=== PATIENT | male | born 2000 | race Caucasian/White ===

== ENCOUNTER 2024-06-07 14:42 | Emergency (ER) | payer OTHER, SELFPAY ==
[2024-06-07] VITALS (10 sets, daily range): BP systolic 107–132; BP diastolic 70–98; PULSE 106–120; RESP 20–22; TEMP 36.8–36.9; O2SAT 98–100; BMI 19.2
--- NOTE | 2024-06-07 14:46 | ED_ITS ---
Discharge Plan Disposition Patient Disposition: Xfer Short-Term Hosp Chief Complaint: Weakness Prescriptions Prescriptions: No Action atomoxetine [Strattera] 40 mg capsule 40 mg PO DAILY Qty: 30 0RF Referrals Follow up/Referrals: Sukhwinder Mendez MD [Primary Care Provider] - See instructions Activity Restrictions/Add. Instructions Additional Instructions/Restrictions: To [facility] emergency department care of Dr. Nelson Clinical Impressions Clinical Impression: Acute hepatic failure, Hypokalemia, Hypocalcemia, Hyperammonemia, Thrombocytopenia, Leukocytosis, Acute hyponatremia Print Language Print Language: Estonian Discharge ED Provider: Cosmo Garcia General Adult HPI <ZEHRA Beasley - Last Filed: 06/07/24 17:34> General Chief complaint: Weakness Stated complaint: weakness, cant hold down food or liquids Time Seen by Provider: 06/07/24 14:44 History of Present Illness HPI narrative: Patient presents for evaluation of asthenia and anorexia. Patient reports that he has been feeling weak lethargic and has not been able to keep down food or liquids for at least a week. He does have a history of alcohol abuse but last drink a month and a half ago. His drink of choice was fireball. Patient has been to rehab before. He has not noticed that he is jaundiced but his family has. He does not know when that occurred but noticed that he has abdominal bloating and puffiness of his face . He denies abdominal pain chest pain shortness of breath fever chills hemoptysis hematochezia melena hematemesis hematuria. He denies IV drug use or illicit or street drug use. Related Data Previous Rx's ?Medication ?Instructions ?Recorded atomoxetine 40 mg capsule 40 mg PO DAILY #30 caps 12/30/20 (Strattera) Allergies Allergy/AdvReac Type Severity Reaction Status Date / Time No Known Allergies Allergy Verified 11/29/20 13:31 PFS <ZEHRA Beasley - Last Filed: 06/07/24 17:34> [facility] Disclaimer: The information contained in this section may have been updated after the patient was seen, as this information can be updated by other users. Social History (Updated 06/07/24 @ 17:34 by ZEHRA Beasley) Smoking Status: Current every day smoker alcohol intake: current alcohol intake frequency: a few times a week substance use type: denies use current occupational status: employed Travel in the last 8 weeks: None number of children: 0 Other Medical History Have you received the Pneumonia Vaccine: No <ZEHRA Beasley - Last Filed: 06/07/24 17:34> ROS Obtained: Yes Systems reviewed as appropriate & no additional complaints except as documented Physical Exam <ZEHRA Beasley - Last Filed: 06/07/24 17:34> General General appearance: alert and in no apparent distress Respiratory Respiratory exam: Present normal lung sounds bilaterally Cardiovascular Cardiovascular exam: Present tachycardia Neurological Exam Neurological exam: Present alert, oriented X3 and CN II-XII intact Medical Decision Making <ZEHRA Beasley - Last Filed: 06/07/24 17:34> Medical Records Medical records reviewed: Yes I reviewed the patient's medical records. Screening: Per USPSTF and CDC recommendations, given the prevalence of disease in our region, it is our hospital?s policy to screen for HIV and viral Hepatitis for all patients aged 18 and over and those with ongoing risk factors. Vidal Inquiry Pt receiving controlled substance: No Vital Signs: 06/07/24 14:44 06/07/24 15:00 06/07/24 15:30 Temperature 98.2 F Temperature Source Oral Pulse Rate 119 H 111 H Pulse Rate [Right Radial] 120 H Respiratory Rate 20 Blood Pressure 107/72 L 124/75 Blood Pressure [Right Arm] 110/70 Blood Pressure Mean 81 88 Blood Pressure Mean [Right Arm] 83 02 Sat by Pulse Oximetry 100 100 100 Oxygen Delivery Method Room Air Room Air Room Air 06/07/24 16:00 Temperature Temperature Source Pulse Rate 106 H Pulse Rate [Right Radial] Respiratory Rate Blood Pressure 123/76 Blood Pressure [Right Arm] Blood Pressure Mean 85 Blood Pressure Mean [Right Arm] 02 Sat by Pulse Oximetry 100 Oxygen Delivery Method Room Air Lab Data Lab results reviewed: Yes I reviewed the patient's lab results. Lab Results 06/07/24 15:02: Direct Bilirubin 2.0 H 06/07/24 15:03: WBC 19.7 H, RBC 2.32 L, Hgb 9.0 L, Hct 25.3 L, MCV 108.9 H, MCH 38.6 H, MCHC 35.5 H, RDW 17.5, Plt Count 77 L, MPV 8.4, Neut % (Auto) 85.0 H, Lymph % (Auto) 11.0, Fannin % (Auto) 3.2, Eos % (Auto) 0.3, Baso % (Auto) 0.4, N eut # (Auto) 16.7 H, Lymph # (Auto) 2.2, Fannin # (Auto) 0.6, Eos # (Auto) 0.1, Baso # (Auto) 0.1, Total Counted 100, Neutrophils % (Manual) 81 H, Lymphocytes % (Manual) 15, Monocytes % (Manual) 4, Platelet Estimate Normal, RBC Morphology Not Reportable, Poikilocytosis 1+, Anisocytosis 1+, Microcytosis 1+, Macrocytosis 1+, Target Cells 1+, PT 15.3 H, INR 1.41 H, APTT 27.3, Sodium 116 L , Potassium 2.0 L*, Chloride 65 L, Carbon Dioxide 39 H, Anion Gap 14.0, BUN 23 H , Creatinine 0.80, Estimated Creat Clear 118, Estimated GFR 118, Est GFR ( Amer) 143, Glucose 120 H, Lactate 8.1 H, Calcium 7.0 L, Magnesium 1.7, Total Bilirubin 5.3 H, AST 164 H, ALT 70, Alkaline Phosphatase 162 H, Ammonia 67 H, Lactate Dehydrogenase 175 L, C-Reactive Protein 60.2 H, Total Protein 5.8 L, Albumin 2.9 L, Globulin 2.9, Albumin/Globulin Ratio 1.0 L, Lipase 131, P rocalcitonin 3.43 H, Acetaminophen < 10 L, Monoscreen Negative, HIV 1&2 Antibody Rapid Nonreactive, Direct Antiglob Test Negative 06/07/24 15:48: Fibrinogen 278 06/07/24 15:03 06/07/24 15:03 Orders (Tests/Meds): ED MEDICATIONS Generic Name Dose Route Start Last Admin Trade Name Freq PRN Reason Stop Dose Admin Potassium Chloride/Water 100 mls @ 50 mls/hr 06/07/24 16:09 06/07/24 16:16 Potassium Chloride 20meq/100ml Ivpb IV 06/07/24 22:08 50 mls/hr Q2H MARYURI Administration Calcium Gluconate/Sodium Chloride 2 gm in 100 mls @ 50 mls/hr 06/07/24 16:13 06/07/24 16:19 Calcium Gluconate 2,000mg/100ml Nacl Premix IV 06/07/24 18:12 50 mls/hr ONCE ONE Administration Vancomycin/PEG/NADA/Lysine/Water 1.5 gm in 300 mls @ 150 mls/hr 06/07/24 16:30 06/07/24 17:38 Vancomycin 1.5gm/300ml (Peg) Premix IV 06/07/24 18:29 150 mls/hr ONCE ONE Administration Miscellaneous 1 each 06/07/24 16:15 06/07/24 16:59 Vancomycin Consult Request NOTAPPLIC 07/07/24 16:14 1 each CONSULT PHARMACY MARYURI Administration Discontinued Medications Generic Name Dose Route Start Last Admin Trade Name Freq PRN Reason Stop Dose Admin Lactated Ringer's 1,000 mls @ 999 mls/hr 06/07/24 14:54 06/07/24 15:06 Lactated Ringer's 1000 Ml Bag IV 06/07/24 15:54 999 mls/hr .Q1H1M ONE Administration Piperacillin Sod/Tazobactam 50 mls @ 100 mls/hr 06/07/24 16:15 06/07/24 16:42 Sod 3.375 gm/ Sodium Chloride IV 06/17/24 16:14 Not Given Q6H MARYURI Albumin Human 25 gm in 100 mls @ 100 mls/hr 06/07/24 16:14 06/07/24 17:03 Albumin 25% (12.5gm) Soln 50ml Bag IV 06/07/24 17:13 100 mls/hr ONCE ONE Administration Piperacillin Sod/Tazobactam 50 mls @ 100 mls/hr 06/07/24 16:40 06/07/24 16:42 Sod 3.375 gm/ Sodium Chloride IV 06/07/24 17:09 100 mls/hr ONCE ONE Administration Iopamidol 75 ml 06/07/24 15:09 06/07/24 15:09 Iopamidol-370 (76%);100ml Bottle IV 06/07/24 15:10 75 ml ONCE ONE Administration Lactulose 20 gm 06/07/24 16:14 06/07/24 16:21 Lactulose 20gm/30ml Udc PO 06/07/24 16:15 20 gm ONCE ONE Administration Potassium Chloride 60 meq 06/07/24 16:09 06/07/24 16:16 Potassium Chloride 20meq Tab PO 06/07/24 16:10 60 meq ONCE ONE Administration Sodium Chloride 10 ml 06/07/24 15:09 06/07/24 15:09 Sodium Chloride 0.9% 10ml Syr (Rad Only) IV 06/07/24 15:10 10 ml ONCE ONE Administration ORDERS Category Date Time Status Direct Jerilyn Stat BBK 06/07/24 15:[address] abdomen pelvis w con Stat Cat Scan 06/07/24 14:54 Completed POCUS Point of Care (ER Only) Stat Exams 06/07/24 14:54 Ordered Acetaminophen Stat Lab 06/07/24 15:03 Completed Ammonia Stat Lab 06/07/24 15:03 Completed Bilirubin,Direct Stat Lab 06/07/24 15:02 Completed CBC w/Auto Diff [Complete Blood Count Auto Diff] Stat Lab 06/07/24 15:03 Completed CMP [Comprehensive Metabolic Panel] Stat Lab 06/07/24 15:03 Completed CRP [C-Reactive Protein] Stat Lab 06/07/24 15:03 Completed Fibrinogen Stat Lab 06/07/24 15:48 Completed HIV (1&2) Antibody Rapid Stat Lab 06/07/24 15:03 Completed Hep C Ab with Reflex to RNA Stat Lab 06/07/24 15:03 Received Hepatitis Panel Routine Lab 06/07/24 15:03 Received INR [Prothrombin Time INR] Stat Lab 06/07/24 15:03 Completed LDH [Lactate Dehydrogenase] Stat Lab 06/07/24 15:03 Completed Lactic Acid Stat Lab 06/07/24 15:03 Completed Lipase Stat Lab 06/07/24 15:03 Completed Magnesium Stat Lab 06/07/24 15:03 Completed Monoscreen (Rapid) Stat Lab 06/07/24 15:03 Completed PTT [Activated Partial Thrombo Time] Stat Lab 06/07/24 15:03 Completed Procalcitonin Stat Lab 06/07/24 15:03 Completed UA [Urinalysis and Microscopic] Stat Lab 06/07/24 14:56 Ordered UDS [Drug Screen,Urine] Stat Lab 06/07/24 14:55 Ordered Blood Culture Stat Micro 06/07/24 16:38 Received Medical Decision Narrative: In summary patient is a 24-year-old male who presents to the emergency department for evaluation of asthenia and painless jaundice. Patient is normotensive tachycardic upon arrival, afebrile. Physical exam is remarkable for visibly jaundiced 24-year-old male who appears to be well-nourished well- developed. Patient has a distended but soft abdomen with no rebound no guarding or rigidity. Bowel sounds normal active. Breath sounds are clear. Patient has sinus tachycardia on the bedside monitor.. Differential diagnosis includes acute liver failure versus hepatitis versus intrinsic liver disease versus obstructive biliary pathology etc. Initial workup will be conducted with hematologic labs urinalysis CT scan abdomen pelvis twelve-lead EKG. Initial interventions include crystalloid bolus for now. Initial workup reviewed by me and shows multiple derangements including leukocytosis, anemia, coagulopathy, hyponatremia hypokalemia hypocalcemia hyperbilirubinemia hyperammonemia mild transaminitis. With the results I am able to calculate both a MELD sodium score and a discriminant function the former is 26 and the latter is 25.1. Upon repeat evaluation I have initiated aggressive electrolyte repletion as well as albumin. I had interactive discussion with hospital medicine here who felt the patient would benefit from malignant specialists and I do not disagree. To that end I had an interactive discussion with the [facility] about patient management and he has been accepted to the [facility] emergency department in care of Dr. Nelson <Matt Johnston MD - Last Filed: 06/07/24 18:09> Vital Signs: 06/07/24 14:44 06/07/24 15:00 06/07/24 15:30 Temperature 98.2 F Temperature Source Oral Pulse Rate 119 H 111 H Pulse Rate [Right Radial] 120 H Respiratory Rate 20 Blood Pressure 107/72 L 124/75 Blood Pressure [Right Arm] 110/70 Blood Pressure Mean 81 88 Blood Pressure Mean [Right Arm] 83 02 Sat by Pulse Oximetry 100 100 100 Oxygen Delivery Method Room Air Room Air Room Air 06/07/24 16:00 Temperature Temperature Source Pulse Rate 106 H Pulse Rate [Right Radial] Respiratory Rate Blood Pressure 123/76 Blood Pressure [Right Arm] Blood Pressure Mean 85 Blood Pressure Mean [Right Arm] 02 Sat by Pulse Oximetry 100 Oxygen Delivery Method Room Air Lab Data Lab Results 06/07/24 15:02: Direct Bilirubin 2.0 H 06/07/24 15:03: WBC 19.7 H, RBC 2.32 L, Hgb 9.0 L, Hct 25.3 L, MCV 108.9 H, MCH 38.6 H, MCHC 35.5 H, RDW 17.5, Plt Count 77 L, MPV 8.4, Neut % (Auto) 85.0 H, Lymph % (Auto) 11.0, Fannin % (Auto) 3.2, Eos % (Auto) 0.3, Baso % (Auto) 0.4, N eut # (Auto) 16.7 H, Lymph # (Auto) 2.2, Fannin # (Auto) 0.6, Eos # (Auto) 0.1, Baso # (Auto) 0.1, Total Counted 100, Neutrophils % (Manual) 81 H, Lymphocytes % (Manual) 15, Monocytes % (Manual) 4, Platelet Estimate Normal, RBC Morphology Not Reportable, Poikilocytosis 1+, Anisocytosis 1+, Microcytosis 1+, Macrocytosis 1+, Target Cells 1+, PT 15.3 H, INR 1.41 H, APTT 27.3, Sodium 116 L , Potassium 2.0 L*, Chloride 65 L, Carbon Dioxide 39 H, Anion Gap 14.0, BUN 23 H , Creatinine 0.80, Estimated Creat Clear 118, Estimated GFR 118, Est GFR ( Amer) 143, Glucose 120 H, Lactate 8.1 H, Calcium 7.0 L, Magnesium 1.7, Total Bilirubin 5.3 H, AST 164 H, ALT 70, Alkaline Phosphatase 162 H, Ammonia 67 H, Lactate Dehydrogenase 175 L, C-Reactive Protein 60.2 H, Total Protein 5.8 L, Albumin 2.9 L, Globulin 2.9, Albumin/Globulin Ratio 1.0 L, Lipase 131, P rocalcitonin 3.43 H, Acetaminophen < 10 L, Monoscreen Negative, HIV 1&2 Antibody Rapid Nonreactive, Direct Antiglob Test Negative 06/07/24 15:48: Fibrinogen 278 Orders (Tests/Meds): ED MEDICATIONS Generic Name Dose Route Start Last Admin Trade Name Freq PRN Reason Stop Dose Admin Potassium Chloride/Water 100 mls @ 50 mls/hr 06/07/24 16:09 06/07/24 16:16 Potassium Chloride 20meq/100ml Ivpb IV 06/07/24 22:08 50 mls/hr Q2H MARYURI Administration Calcium Gluconate/Sodium Chloride 2 gm in 100 mls @ 50 mls/hr 06/07/24 16:13 06/07/24 16:19 Calcium Gluconate 2,000mg/100ml Nacl Premix IV 06/07/24 18:12 50 mls/hr ONCE ONE Administration Vancomycin/PEG/NADA/Lysine/Water 1.5 gm in 300 mls @ 150 mls/hr 06/07/24 16:30 06/07/24 17:38 Vancomycin 1.5gm/300ml (Peg) Premix IV 06/07/24 18:29 150 mls/hr ONCE ONE Administration Miscellaneous 1 each 06/07/24 16:15 06/07/24 16:59 Vancomycin Consult Request NOTAPPLIC 07/07/24 16:14 1 each CONSULT PHARMACY MARYURI Administration Discontinued Medications Generic Name Dose Route Start Last Admin Trade Name Freq PRN Reason Stop Dose Admin Lactated Ringer's 1,000 mls @ 999 mls/hr 06/07/24 14:54 06/07/24 15:06 Lactated Ringer's 1000 Ml Bag IV 06/07/24 15:54 999 mls/hr .Q1H1M ONE Administration Piperacillin Sod/Tazobactam 50 mls @ 100 mls/hr 06/07/24 16:15 06/07/24 16:42 Sod 3.375 gm/ Sodium Chloride IV 06/17/24 16:14 Not Given Q6H [facility] Albumin Human 25 gm in 100 mls @ 100 mls/hr 06/07/24 16:14 06/07/24 17:03 Albumin 25% (12.5gm) Soln 50ml Bag IV 06/07/24 17:13 100 mls/hr ONCE ONE Administration Piperacillin Sod/Tazobactam 50 mls @ 100 mls/hr 06/07/24 16:40 06/07/24 16:42 Sod 3.375 gm/ Sodium Chloride IV 06/07/24 17:09 100 mls/hr ONCE ONE Administration Iopamidol 75 ml 06/07/24 15:09 06/07/24 15:09 Iopamidol-370 (76%);100ml Bottle IV 06/07/24 15:10 75 ml ONCE ONE Administration Lactulose 20 gm 06/07/24 16:14 06/07/24 16:21 Lactulose 20gm/30ml Udc PO 06/07/24 16:15 20 gm ONCE ONE Administration Potassium Chloride 60 meq 06/07/24 16:09 06/07/24 16:16 Potassium Chloride 20meq Tab PO 06/07/24 16:10 60 meq ONCE ONE Administration Sodium Chloride 10 ml 06/07/24 15:09 06/07/24 15:09 Sodium Chloride 0.9% 10ml Syr (Rad Only) IV 06/07/24 15:10 10 ml ONCE ONE Administration ORDERS Category Date Time Status Direct Jerilyn Stat BBK 06/07/24 15:[address] abdomen pelvis w con Stat Cat Scan 06/07/24 14:54 Completed POCUS Point of Care (ER Only) Stat Exams 06/07/24 14:54 Ordered Acetaminophen Stat Lab 06/07/24 15:03 Completed Ammonia Stat Lab 06/07/24 15:03 Completed Bilirubin,Direct Stat Lab 06/07/24 15:02 Completed CBC w/Auto Diff [Complete Blood Count Auto Diff] Stat Lab 06/07/24 15:03 Completed CMP [Comprehensive Metabolic Panel] Stat Lab 06/07/24 15:03 Completed CRP [C-Reactive Protein] Stat Lab 06/07/24 15:03 Completed Fibrinogen Stat Lab 06/07/24 15:48 Completed HIV (1&2) Antibody Rapid Stat Lab 06/07/24 15:03 Completed Hep C Ab with Reflex to RNA Stat Lab 06/07/24 15:03 Received Hepatitis Panel Routine Lab 06/07/24 15:03 Received INR [Prothrombin Time INR] Stat Lab 06/07/24 15:03 Completed LDH [Lactate Dehydrogenase] Stat Lab 06/07/24 15:03 Completed Lactic Acid Stat Lab 06/07/24 15:03 Completed Lipase Stat Lab 06/07/24 15:03 Completed Magnesium Stat Lab 06/07/24 15:03 Completed Monoscreen (Rapid) Stat Lab 06/07/24 15:03 Completed PTT [Activated Partial Thrombo Time] Stat Lab 06/07/24 15:03 Completed Procalcitonin Stat Lab 06/07/24 15:03 Completed UA [Urinalysis and Microscopic] Stat Lab 06/07/24 14:56 Ordered UDS [Drug Screen,Urine] Stat Lab 06/07/24 14:55 Ordered Blood Culture Stat Micro 06/07/24 16:38 Received Medical Decision Narrative: In summary patient is a 24-year-old male who presents to the emergency department for evaluation of asthenia and painless jaundice. Patient is normotensive tachycardic upon arrival, afebrile. Physical exam is remarkable for visibly jaundiced 24-year-old male who appears to be well-nourished well- developed. Patient has a distended but soft abdomen with no rebound no guarding or rigidity. Bowel sounds normal active. Breath sounds are clear. Patient has sinus tachycardia on the bedside monitor.. Differential diagnosis includes acute liver failure versus hepatitis versus intrinsic liver disease versus obstructive biliary pathology etc. Initial workup will be conducted with hematologic labs urinalysis CT scan abdomen pelvis twelve-lead EKG. Initial interventions include crystalloid bolus for now. Initial workup reviewed by me and shows multiple derangements including leukocytosis, anemia, coagulopathy, hyponatremia hypokalemia hypocalcemia hyperbilirubinemia hyperammonemia mild transaminitis. With the results I am able to calculate both a MELD sodium score and a discriminant function the former is 26 and the latter is 25.1. Upon repeat evaluation I have initiated aggressive electrolyte repletion as well as albumin. I had interactive discussion with hospital medicine here who felt the patient would benefit from malignant specialists and I do not disagree. To that end I had an interactive discussion with the [facility] transfer center about patient management and he has been accepted to the [facility] emergency department in care of Dr. Omar Johnston: I independently examined and interviewed patient. I agree with above. Labs concerning for acute liver failure. Leukocytosis with neutrophilia, but new onset anemia and thrombocytopenia. Kidney function normal. Patient hyponatremic, hypokalemic, hypochloremic. Anion gap normal. Lactate elevated 8.1. LFTs with AST 164/ALT 70/alkaline phosphatase 162. Total bilirubin 5.3, direct bilirubin 2.0. LDH and direct Jerilyn tests are negative. Procalcitonin elevated at 3.5. Acetaminophen negative. CT of the abdomen and pelvis with concern perihepatic fluid, no obvious intra-abdominal abnormality. Bedside [id number] ultrasound with gallbladder sludge, no stones, normal caliber of common bile duct. Hospitalist was contacted and case was discussed, given nature of acute hepatic failure, recommended transfer to Center with hepatology. I feel this is appropriate. Matt Johnston MD Procedures <Matt Johnston MD - Last Filed: 06/07/24 18:09> Limited Ultrasound Indication:: Limited RUQ ultrasound Indication: Acute liver failure, painless jaundice, abnormal CT Identified structures: -Gallbladder -Gallbladder wall -Common bile duct -Liver Findings: Sonographic Mcginnis sign: Absent Gallstones: Absent Sludge: Present Pericholecystic fluid: Absent Maximal GB wall thickness (mm) (normal is </= 3mm): 3.1 mm Common bile duct width (mm) (normal is </= 6mm): Normal Gallbladder width (cm) (normal is < 4cm): Normal Gallbladder length (cm) (normal is < 10cm): Normal Impression: Borderline upper limit of normal gallbladder wall at 3.1 mm with no secondary findings concerning for cholecystitis. Sludge in the gallbladder without focal stones. Images were saved to permanent archive The study was technically adequate CPT 60141-20 This study was performed by me, and I personally interpreted all images/videos. Based on my clinical judgement, these images were adequate and did not necessitate further imaging. Critical Care <ZEHRA Beasley - Last Filed: 06/07/24 17:34> Critical Care Time Critical Care Time: Yes Attestation: On 06/07/24, the high probability of a clinically significant, sudden or life threatening deterioration of the following system: Cardiopulmonary, neurologic; required my full and direct attention, intervention and personal management. The time I documented below is in addition to time spent performing reported procedures but includes the following listed in this critical care notation. Total Time Total Critical Care Time: 45
--- NOTE | 2024-06-07 14:54 | CT_ITS ---
PROCEDURE INFORMATION: Exam: CT Abdomen And Pelvis With Contrast Exam date and time: 06/07/2024 3:11 PM Age: 24 years old Clinical indication: Other: Painless jaundice TECHNIQUE: Imaging protocol: Computed tomography of the abdomen and pelvis with contrast. Radiation optimization: All CT scans at this facility use at least one of these dose optimization techniques: automated exposure control; mA and/or kV adjustment per patient size (includes targeted exams where dose is matched to clinical indication); or iterative reconstruction. Contrast material: ISOVUE; Contrast volume: 75 ml; Contrast route: IV; COMPARISON: No relevant prior studies available. FINDINGS: Diaphragm: Small hiatal hernia. Liver: Normal. No mass. Gallbladder and biliary ducts: Gallstones in the gallbladder. . Mild pericholecystic fluid adjacent to the fundus. No dilatation of the common duct Pancreas: Normal. No ductal dilation. Spleen: Borderline splenomegaly 13 cm Adrenal glands: Normal. No mass. Kidneys and ureters: Normal. No hydronephrosis. Stomach and bowel: Low-attenuation bowel wall thickening and enhancing mucosa is seen throughout the colon consistent with colitis. Differential diagnosis includes infectious and inflammatory etiologies.. Appendix: Normal appendix. Intraperitoneal space: Unremarkable. No free air. No significant fluid collection. Vasculature: Unremarkable. No abdominal aortic aneurysm. Lymph nodes: Enlarged lymph node adjacent to the distal esophagus 14.5 x 10.5 mm (series 3, image 6. Urinary bladder: Unremarkable as visualized. Reproductive: Unremarkable as visualized. Bones/joints: Unremarkable. No acute fracture. Soft tissues: Unremarkable. IMPRESSION: 1. Low-attenuation bowel wall thickening and enhancing mucosa is seen throughout the colon consistent with colitis. Differential diagnosis includes infectious and inflammatory etiologies.. 2. Enlarged lymph node adjacent to the distal esophagus 14.5 x 10.5 mm (series 3, image 6. 3. Gallstones in the gallbladder. . Mild pericholecystic fluid adjacent to the fundus. No dilatation of the common duct. Recommend gallbladder ultrasound if clinically indicated
--- NOTE | 2024-06-07 15:03 | PC.NURSE ---
labs collected and sent to lab
[2024-06-07] MEDS: LACTATED RINGERS 1000ML 1,000 ML 999 ML IV (15:06)
--- NOTE | 2024-06-07 15:06 | PC.NURSE ---
PT TO CT
[2024-06-07] MEDS: IOPAMIDOL-370 (76%);100ML BOTTLE 75 ML IV (15:09)
[2024-06-07] MEDS: SODIUM CHLORIDE 0.9% 10ML SYR (RAD ONLY) 10 ML IV (15:09)
--- NOTE | 2024-06-07 15:17 | ECG_ITS ---
APPROVED REPORT Exam: Resting ECG HR:113 bpm ECG Measurements Heart Rate 113 AXES NH 167 P 62 QRSd 85 QRS 65 QT 367 T 63 QTc 434 Conclusion Sinus tachycardia. Nonspecific T wave changes. Electronically signed by : SHADI PINEDA, 06/07/2024 20:01:37
[2024-06-07 15:29] LABS: Lactate Dehydrogenase 175 U/L (313-618)
[2024-06-07 15:30] LABS: Alanine Aminotransferase 70 U/L (12-78); Albumin Level 2.9 g/dl (3.5-5.0); Alkaline Phosphatase 162 U/L (38-126); Aspartate Amino Transferase 164 U/L (17-59); Basophils # 0.1 K/mm3 (0-0.2); Basophils % 0.4 % (0.1-2.0); Bilirubin,Total 5.3 mg/dl (0.2-1.3); Blood Urea Nitrogen 23 mg/dl (9-20); Carbon Dioxide 39 mmol/L (22.0-30.0); Creatinine Clearance Estimated 118 mL/min (50-200); Eosinophils # 0.1 K/mm3 (0.0-0.4); Eosinophils % 0.3 % (0.1-12.0); Estimated Glomerular Filt Rate 118 ml/min (>60); GFR (African American) 143 ML/MIN (>60); Globulin 2.9 g/dL (1.3-3.2); Glucose 120 mg/dl (74-100); Hematocrit 25.3 % (42.0-52.0); Lipase 131 U/L (23-300); Lymphocytes # 2.2 K/mm3 (0.7-4.5); Magnesium 1.7 mg/dl (1.6-2.3); Mean Corpuscular HGB Conc 35.5 g/dL (31.8-35.4); Mean Corpuscular Hemoglobin 38.6 pg (27.0-31.2); Mean Corpuscular Volume 108.9 fl (80-94); Mean Platelet Volume 8.4 fl (7.4-10.4); Monocytes # 0.6 K/mm3 (0.1-1.0); Monocytes % 3.2 % (1.7-9.3); Neutrophils # 16.7 K/mm3 (1.8-7.8); Platelet Count 77 K/mm3 (142-424); Red Blood Count 2.32 M/mm3 (4.60-6.20); Red Cell Distribution Width 17.5 % (11.5-17.5); Sodium 116 mmol/L (136-145); Total Protein,Serum 5.8 g/dl (6.3-8.2); White Blood Count 19.7 K/mm3 (4.8-10.8)
[2024-06-07 15:33] LABS: Acetaminophen < 10 ug/ml (10-30)
[2024-06-07 15:34] LABS: C-Reactive Protein 60.2 mg/L (0-4); MANUAL DIFFERENTIAL MANUAL DIFFERENTIAL (MANUAL DIFF)
[2024-06-07 15:41] LABS: Ammonia 67 umol/L (9-30)
[2024-06-07 15:57] LABS: Monoscreen (Rapid) Negative (Negative)
[2024-06-07 16:08] LABS: Chloride 65 mmol/L (98-107); Lactic Acid 8.1 mmol/L (0.7-2.1)
--- NOTE | 2024-06-07 16:08 | PC.NURSE ---
SARAH JEAN made aware of critical labs of Potassium-2.0,Chloride-65, and Lactic-8.1
[2024-06-07] MEDS: KCl 20mEq/100ml 100 ML 50 MEQ IV ×3 (16:16→20:46)
[2024-06-07] MEDS: POTASSIUM CHLORIDE 20MEQ TAB 60 MEQ PO (16:16)
[2024-06-07] MEDS: CALCIUM GLUC IN NACL, ISO-OSM 2 GM/100 ML BAG IV (16:19)
[2024-06-07] MEDS: LACTULOSE 20GM/30ML UDC 20 GM PO (16:21)
[2024-06-07 16:23] LABS: INR 1.41 (0.9-1.1); Prothrombin Time 15.3 seconds (10.1-12.5)
[2024-06-07 16:28] LABS: Activated Partial Thrombo Time 27.3 seconds (22.8-30.6)
[2024-06-07 16:32] LABS: Lymphocytes % 15 % (10-50); Monocytes % 4 % (2-9); Neutrophils % 81 % (42-76); Total Cells Counted 100
[2024-06-07 16:33] LABS: Anisocytosis 1+; Macrocytosis 1+; Microcytosis 1+; Platelet Estimate Normal; Poikilocytosis 1+; Target Cells 1+
[2024-06-07] MEDS: PIPERACILLIN/TAZO 3.375 GM in 0.9 % SODIUM CHLORIDE 50 ML IV (16:42)
[2024-06-07 16:46] LABS: Procalcitonin 3.43 ng/mL (0.0-2.0)
[2024-06-07] MEDS: VANCOMYCIN CONSULT REQUEST 1 EACH NOTAPPLIC (16:59)
[2024-06-07] MEDS: ALBUMIN HUMAN 25 GM/100 ML BAG IV (17:03)
--- NOTE | 2024-06-07 17:08 | PC.NURSE ---
Called [facility] to transfer patient per Don. [facility] stated that they would give us a call back
[2024-06-07 17:26] LABS: Fibrinogen 278 mg/dL (229.9-363.5)
[2024-06-07 17:37] LABS: HIV (1&2) Antibody Rapid NONREACTIVE (NONREACTIVE)
[2024-06-07] MEDS: VANCOMYCIN/WATER FOR INJ (PEG) 1.5 GM/300 ML PIGGYBACK IV (17:38)
--- NOTE | 2024-06-07 18:41 | PC.NURSE ---
rounded on pt. no needs at this time. awaiting transfer.
[2024-06-07 19:08] LABS: Reflex Lactic Add Lactic Reflex
[2024-06-07 20:55] LABS: Microscopic, Urine URINE MICROSCOPIC (MICROSCOPIC)
[2024-06-07 21:02] LABS: Blood, Urine Negative (Negative); Glucose,Urine (UA) Negative (Negative); Ketones,Urine TRACE (Negative); Leukocyte Esterase,Urine Negative (Negative); Nitrate,Urine POSITIVE (Negative); Protein,Urine Negative (Negative)
[2024-06-07 21:09] LABS: Bilirubin,Urine 2+ (Negative); Color,Urine Amber (Yellow)
[2024-06-07 21:10] LABS: Appearance,Urine Cloudy (Clear)
[2024-06-07 21:12] LABS: Amphetamine/Metha Screen,Urine Negative ng/ml (<1000)
[2024-06-07 21:13] LABS: Barbiturates Screen,Urine Negative ng/ml (<200); Benzodiazepines Screen,Urine Negative ng/ml (<200)
[2024-06-07 21:14] LABS: Cannabinoid Screen,Urine Negative ng/ml (<50)
[2024-06-07 21:15] LABS: Cocaine Screen,Urine Negative ng/ml (<300); Methadone Screen,Urine Negative ng/ml (<300)
[2024-06-07 21:16] LABS: Opiate Screen,Urine Negative ng/ml (<300); Phencyclidine Screen,Urine Negative ng/ml (<25)
[2024-06-07 21:27] LABS: Bacteria,Urine 1+ /lpf; Squamous Epithelial Cell,Urine Occasional #/hpf (0-5)
--- NOTE | 2024-06-08 03:16 | PC.NURSE ---
pharmacy contacted the ED in regards to the dosing for vancomycin and Zosyn for this patient.
[2024-06-09 08:59] LABS: HBsAg Screen Negative (Negative); HCV Ab Non Reactive (Non Reactive); Hep A Ab, IGM Negative (Negative); Hep B Core Ab, IgM Negative (Negative)
== END 2024-06-07 21:20 | disposition short-term general hospital (02) ==
PROVIDERS: Emergency Medicine; Physician Assistant; Emergency Provider Student in an Organized Health Care Education/Training Program; PCP Family Medicine
DX: E87.1 Hypo-osmolality and hyponatremia (principal); D72.89 Other specified disorders of white blood cells; D69.6 Thrombocytopenia, unspecified; E72.20 Disorder of urea cycle metabolism, unspecified; E83.51 Hypocalcemia; E87.6 Hypokalemia; K72.00 Acute and subacute hepatic failure without coma; R53.1 Weakness; R14.0 Abdominal distension (gaseous); R63.8 Other symptoms and signs concerning food and fluid intake
CPT/HCPCS: 74177; 80053; 80074; 80307; 80329; 81001; 82140; 82248; 83605; 83615; 83690; 83735; 84145; 85007; 85025; 85027; 85384; 85610; 85730; 86140; 86318; 86803; 86880; 87040; 87389; 93005; 96361; 96365; 96374; 99291; G0480; J2543; J7120; P9047; Q9967

== ENCOUNTER 2024-06-15 00:13 | Emergency (ER) | payer OTHER, SELFPAY ==
[2024-06-15] VITALS (10 sets, daily range): BP systolic 92–137; BP diastolic 57–83; PULSE 70–115; RESP 18–20; TEMP 36.4–36.7; O2SAT 94–100; BMI 21.8
--- NOTE | 2024-06-15 00:17 | HMH.EDGENADL ---
Discharge Plan Disposition Patient Disposition: Home, Self-Care Prescriptions Prescriptions: No Action atomoxetine [Strattera] 40 mg capsule 40 mg PO DAILY Qty: 30 0RF benzonatate 200 mg capsule 200 mg PO TIDP PRN (Reason: Cough) sucralfate 100 mg/mL suspension 1,000 mg PO Q6H pantoprazole 20 mg tablet,delayed release (DR/EC) 20 mg PO DAILY calcium carbonate [Calcium Antacid] 200 mg calcium (500 mg) tablet,chewable 200 mg PO Q6HP PRN (Reason: Indigestion) nicotine 21 mg/24 hr patch 24 hour 21 mg transdermal DAILY lidocaine HCl [Lidocaine Viscous] 2 % solution 1 applic PO DAILY folic acid 1 mg tablet 1 mg PO DAILY potassium chloride [Klor-Con M10] 10 mEq tablet,ER particles/crystals 10 meq PO DAILY thiamine mononitrate (vit B1) [Vitamin B-1 (mononitrate)] 100 mg tablet 100 mg PO DAILY Referrals Follow up/Referrals: Sukhwinder Mendez MD [Primary Care Provider] - See instructions Activity Restrictions/Add. Instructions Additional Instructions/Restrictions: Please continue to follow-up with previously scheduled appointments. Please return to the emergency department if you develop any new or worsening symptoms or become concerned for your health. Clinical Impressions Clinical Impression: Ascites due to alcoholic hepatitis Instructions Patient Instructions: DI for Acute Abdominal Pain Print Language Print Language: Czech Discharge ED Provider: Dutch Byrd Adult HPI General Chief complaint: Abdominal Pain Stated complaint: abd pain Time Seen by Provider: 06/15/24 00:16 History of Present Illness HPI narrative: 24-year-old male with history of alcoholism with recent admission to [facility] for acute liver failure presents for abdominal pain. Per chart review and history from family, patient was drinking heavily for a long time. He stopped eating due to a break-up and then developed these issues more acutely. He was seen in our ER and was noted to have a meld of 26 and have a variety of severe laboratory abnormalities. He was sent to for further evaluation. He was kept there until when he was discharged after they had stabilized his electrolytes and his liver enzymes had been downtrending. He reports that he has not begun drinking again. He reports he has been eating a normal diet. He is here tonight because his abdomen is becoming more distended and he is having more pain. At he did not have a paracentesis because he did not have any ascites. Patient reports normal urination. He reports he is having multiple daily stools that are pale in color, not diarrheal. Related Data Home Medications ?Medication ?Instructions ?Recorded ?Confirmed benzonatate 200 mg capsule 200 mg PO TIDP PRN Cough 06/15/24 06/15/24 calcium carbonate (Calcium Antacid) 200 mg PO Q6HP PRN Indigestion 06/15/24 06/15/24 folic acid 1 mg tablet 1 mg PO DAILY 06/15/24 06/15/24 lidocaine HCl 2 % mucosal solution 1 applic PO DAILY 06/15/24 06/15/24 (Lidocaine Viscous) nicotine 21 mg/24 hr daily 21 mg transdermal DAILY 06/15/24 06/15/24 transdermal patch pantoprazole 20 mg tablet,delayed 20 mg PO DAILY 06/15/24 06/15/24 release potassium chloride 10 mEq 10 meq PO DAILY 06/15/24 06/15/24 tablet,extended release(part/cryst) (Klor-Con M) sucralfate 100 mg/mL oral 1,000 mg PO Q6H 06/15/24 06/15/24 suspension thiamine mononitrate (vit B1) 100 100 mg PO DAILY 06/15/24 06/15/24 mg tablet (Vitamin B-1 (mononitrate)) Previous Rx's ?Medication ?Instructions ?Recorded atomoxetine 40 mg capsule 40 mg PO DAILY #30 caps 12/30/20 (Strattera) Allergies Allergy/AdvReac Type Severity Reaction Status Date / Time No Known Allergies Allergy Verified 11/29/20 13:31 [facility] Disclaimer: The information contained in this section may have been updated after the patient was seen, as this information can be updated by other users. Social History (Updated 06/07/24 @ 17:34 by ZEHRA Beasley) Smoking Status: Current every day smoker alcohol intake: current alcohol intake frequency: a few times a week substance use type: denies use current occupational status: employed Travel in the last 8 weeks: None number of children: 0 Other Medical History Have you received the Pneumonia Vaccine: No ROS Obtained: Yes All systems reviewed & no additional complaints except as documented Physical Exam General General appearance: alert Comment: Pale Head Head exam: atraumatic and normocephalic Eye Eye exam: Present normal appearance, PERRL and EOMI ENT ENT exam: Present normal oropharynx and normal external ear exam Neck Neck exam: Present normal inspection and full ROM Chest Chest inspection: Present normal inspection and symmetric chest wall rise; Absent tenderness Respiratory Respiratory exam: Present normal lung sounds bilaterally; Absent respiratory distress Cardiovascular Cardiovascular exam: Present regular rate and normal rhythm Abdominal Exam Abdominal exam: Present soft, distention and tenderness (generalized); Absent guarding Extremities Exam Extremities exam: Present normal inspection and edema (bilat LE); Absent joint swelling Back Exam Back exam: Present normal inspection; Absent tenderness Neurological Exam Neurological exam: Present alert and oriented X3; Absent motor sensory deficit Psychiatric Psychiatric exam: Present anxious Skin Skin exam: Present warm, dry and pallor Lymphatic Lymphatic Findings: no adenopathy Medical Decision Making Medical Records Medical records reviewed: Yes I reviewed the patient's medical records. Screening: Per USPSTF and CDC recommendations, given the prevalence of disease in our region, it is our hospital?s policy to screen for HIV and viral Hepatitis for all patients aged 18 and over and those with ongoing risk factors. Vidal Inquiry Pt receiving controlled substance: No Vidal was queried for this patient: No Vital Signs: 06/15/24 00:14 06/15/24 00:42 06/15/24 01:00 Temperature 97.6 F Temperature Source Oral Pulse Rate 111 H 106 H Pulse Rate [Right] 115 H Respiratory Rate 19 Blood Pressure 111/74 92/57 L Blood Pressure [Left Arm] 124/83 Blood Pressure Mean Blood Pressure Mean [Left Arm] 96 Blood Pressure Source [Left Arm] Automatic Cuff 02 Sat by Pulse Oximetry 99 100 98 Oxygen Delivery Method Room Air 06/15/24 01:58 06/15/24 02:17 06/15/24 03:32 Temperature Temperature Source Pulse Rate 103 H 98 H 70 Pulse Rate [Right] Respiratory Rate 18 Blood Pressure 110/62 119/79 120/69 Blood Pressure [Left Arm] Blood Pressure Mean 78 Blood Pressure Mean [Left Arm] Blood Pressure Source [Left Arm] 02 Sat by Pulse Oximetry 97 94 L 98 Oxygen Delivery Method 06/15/24 04:00 06/15/24 04:30 Temperature Temperature Source Pulse Rate 95 H 92 H Pulse Rate [Right] Respiratory Rate Blood Pressure 116/73 113/66 Blood Pressure [Left Arm] Blood Pressure Mean Blood Pressure Mean [Left Arm] Blood Pressure Source [Left Arm] 02 Sat by Pulse Oximetry 100 99 Oxygen Delivery Method Lab Data Lab results reviewed: Yes I reviewed the patient's lab results. Lab Results 06/15/24 00:30: WBC 19.2 H, RBC 2.56 L, Hgb 9.0 L, Hct 27.4 L, MCV 107.0 H, MCH 35.0 H, MCHC 32.7, RDW 19.6 H, Plt Count 518 H, MPV 8.6, Neut % (Auto) 78.9, Lymph % (Auto) 15.4, [place] % (Auto) 3.8, Eos % (Auto) 1.1, Baso % (Auto) 0.8, Neut # (Auto) 15.2 H, Lymph # (Auto) 3.0, [place] # (Auto) 0.7, Eos # (Auto) 0.2, Baso # (Auto) 0.2, Total Counted 100, Neutrophils % (Manual) 76, Lymphocytes % (Manual) 15, Atypical Lymphs % 1.0, Monocytes % (Manual) 6, Eosinophils % (Manual) 2, Platelet Estimate Slight increase, Anisocytosis 1+, Macrocytosis 1+, PT 11.9, INR 1.07, Sodium 133 L, Potassium 3.6, Chloride 98, Carbon Dioxide 31 H, Anion Gap 7.6, BUN 14, Creatinine 0.70, Estimated Creat Clear 153, Estimated GFR 137, Est GFR ( Amer) 166, Glucose 116 H, Calcium 7.9 L, Phosphorus 3.5, Magnesium 1.4 L, Total Bilirubin 1.1, AST 236 H, ALT 79 H, Alkaline Phosphatase 207 H, Total Protein 5.5 L, Albumin 2.6 L, Globulin 2.9, Albumin/Globulin Ratio 0.9 L, Lipase 99 06/15/24 03:00: Urine Color Josefa, Urine Appearance Slightly cloudy, Urine pH 5.5, Ur Specific Townsend 1.020, Urine Protein Trace, Urine Glucose (UA) Negative, Urine Ketones 1+, Urine Blood Negative, Urine Nitrate Positive, Urine Bilirubin 2+ A, Urine Urobilinogen 1.0, Ur Leukocyte Esterase Negative, Urine RBC None, Urine WBC 3-5, Ur Squamous Epith Cells Occasional, Urine Bacteria 1+, Urine Mucus 1+ 06/15/24 03:06: Fluid Source Peritoneal fluid, Fluid Volume 13, Fluid Appearance Cloudy, Fluid RBC (Auto) < 10, Fld Tot Nucleated Cell 62 06/15/24 00:30 06/15/24 00:30 Orders (Tests/Meds): ED MEDICATIONS Discontinued Medications Generic Name Dose Route Start Last Admin Trade Name Miley PRN Reason Stop Dose Admin Ceftriaxone Sodium 2 gm/ 100 mls @ 200 mls/hr 06/15/24 02:27 06/15/24 03:31 Sodium Chloride IV 06/15/24 02:56 200 mls/hr ONCE ONE Administration Iopamidol 75 ml 06/15/24 01:52 06/15/24 01:54 Iopamidol-370 (76%);100ml Bottle IV 06/15/24 01:53 75 ml ONCE ONE Administration Morphine Sulfate 4 mg 06/15/24 00:31 06/15/24 00:36 Morphine 4mg/Ml Syringe IV 06/15/24 00:32 4 mg ONCE ONE Administration Sodium Chloride 10 ml 06/15/24 01:52 06/15/24 01:53 Sodium Chloride 0.9% 10ml Syr (Rad Only) IV 06/15/24 01:53 10 ml ONCE ONE Administration ORDERS Category Date Time Status CT abdomen pelvis w con Stat Cat Scan 06/15/24 00:31 Completed Body Fluid: Cell Count w/ Diff Stat Lab 06/15/24 03:06 Results CBC w/Auto Diff [Complete Blood Count Auto Diff] Stat Lab 06/15/24 00:30 Completed CMP [Comprehensive Metabolic Panel] Stat Lab 06/15/24 00:30 Completed INR [Prothrombin Time INR] Stat Lab 06/15/24 00:30 Completed Lipase Stat Lab 06/15/24 00:30 Completed Magnesium Stat Lab 06/15/24 00:30 Completed Phosphorous Stat Lab 06/15/24 00:30 Completed UA [Urinalysis and Microscopic] Stat Lab 06/15/24 03:00 Completed Blood Culture Stat Micro 06/15/24 03:16 Received Body Fluid Cult & Gram Stain Stat Micro 06/15/24 03:30 Ordered Medical Decision Narrative: 24-year-old male with history of recent admission to for acute liver failure presents for worsening abdominal pain and distention. History was obtained via interactive discussion with patient, family, chart review. On arrival, patient is [afebrile, hemodynamically stable, satting appropriately, alert, oriented x4, GCS 15], moving all extremities spontaneously. Full physical exam performed and significant for pale appearing, abdomen tender and mildly distended, bilateral lower extremity edema Differential includes but is not limited to worsening liver failure, ascites, SBP, biliary pathology, electrolyte derangements. Workup initiated including CBC CMP mag Phos blood cultures urinalysis CT abdomen pelvis with IV contrast. On re-evaluation, patient [remains afebrile, HD stable.] Laboratory workup independently interpreted by me and significant for elevated AST ALT alk phos, mildly up trended from patient's discharge labs on at .. Bilirubin normalized. Mild hypokalemia and hypomagnesemia.. Imaging independently interpreted by me and significant for moderate ascites, gallbladder contracted with stones, bilateral small pleural effusions. See radiology read for full review of final results. Paracentesis was performed and thereafter patient was initiated on ceftriaxone 2 g for BP prophylaxis. Culture Gram stain and cell count sent to lab. Patient had total of 1.2 L of fluid removed. The cell count returned with less than 250 nucleated cells, no evidence of SBP. Given mildly worsened LFTs and new onset ascites, I called and spoke with the [facility] regarding next steps. Patient is hemodynamically stable, reports symptomatic improvement after SBP, and his labs overall are significantly better than when he was here previously. His MELD has gone from 26-13. He has scheduled follow-up within the next 3 and 4 days and has good access to his PCP in [place]. I offered the patient transfer to the [facility] for continued monitoring at this time, but after interactive discussion with patient and family they have elected to return home for now and follow-up with PCP for repeat labs or they will return if he develops any new or worsening symptoms. I had a extensive discussion with patient about the importance of continuing alcohol abstinence. Procedures Risk/Benefits of Procedure(s) Were Explained: Yes Critical Care Critical Care Time Critical Care Time: No
--- NOTE | 2024-06-15 00:31 | CT_ITS ---
PROCEDURE INFORMATION: Exam: CT Abdomen And Pelvis With Contrast Exam date and time: 06/15/2024 1:55 AM Age: 24 years old Clinical indication: Abdominal pain; Generalized; Additional info: Recent alcoholic hepatitis, worsening abd pain TECHNIQUE: Imaging protocol: Computed tomography of the abdomen and pelvis with contrast. Radiation optimization: All CT scans at this facility use at least one of these dose optimization techniques: automated exposure control; mA and/or kV adjustment per patient size (includes targeted exams where dose is matched to clinical indication); or iterative reconstruction. Contrast material: ISOVUE 370; Contrast volume: 75 ml; Contrast route: IV; COMPARISON: CT ABDOMEN PELVIS W CON 06/07/2024 3:11 PM FINDINGS: Pleural spaces: Small bilateral pleural effusions. Diaphragm: Small hiatal hernia. Liver: Mild hepatomegaly. No focal hepatic disease is noted but heterogeneous fatty replacement is seen. Gallbladder and biliary ducts: Multiple dependent gallstones. Gallbladder wall thickening with pericholecystic fluid. Pancreas: Normal. No ductal dilation. Spleen: Normal. No splenomegaly. Adrenal glands: Normal. No mass. Kidneys and ureters: Normal. No hydronephrosis. Stomach and bowel: Unremarkable. No obstruction. No mucosal thickening. Appendix: No evidence of appendicitis. Intraperitoneal space: Moderate ascites is seen throughout the abdomen and pelvis. Vasculature: Unremarkable. No abdominal aortic aneurysm. Lymph nodes: Unremarkable. No enlarged lymph nodes. Urinary bladder: Unremarkable as visualized. Reproductive: Unremarkable as visualized. Bones/joints: Unremarkable. No acute fracture. Soft tissues: Unremarkable. IMPRESSION: 1. Heterogeneous hepatic steatosis and mild hepatomegaly. 2. Moderate ascites. 3. Contracted gallbladder with stones and pericholecystic fluid, correlate with right upper quadrant ultrasound for further evaluation as clinically indicated. 4. Small bilateral pleural effusions.
[2024-06-15] MEDS: MORPHINE 4MG/ML SYRINGE 4 MG IV (00:36)
[2024-06-15 00:44] LABS: Basophils # 0.2 K/mm3 (0-0.2); Basophils % 0.8 % (0.1-2.0); Eosinophils # 0.2 K/mm3 (0.0-0.4); Eosinophils % 1.1 % (0.1-12.0); Hematocrit 27.4 % (42.0-52.0); Lymphocytes % 15.4 % (10-50); Mean Corpuscular HGB Conc 32.7 g/dL (31.8-35.4); Mean Platelet Volume 8.6 fl (7.4-10.4); Monocytes # 0.7 K/mm3 (0.1-1.0); Monocytes % 3.8 % (1.7-9.3); Neutrophils # 15.2 K/mm3 (1.8-7.8); Neutrophils % 78.9 % (37.0-80.0); Platelet Count 518 K/mm3 (142-424); Red Blood Count 2.56 M/mm3 (4.60-6.20); Red Cell Distribution Width 19.6 % (11.5-17.5); White Blood Count 19.2 K/mm3 (4.8-10.8)
[2024-06-15 00:46] LABS: MANUAL DIFFERENTIAL MANUAL DIFFERENTIAL (MANUAL DIFF)
[2024-06-15 00:50] LABS: INR 1.07 (0.9-1.1); Prothrombin Time 11.9 seconds (10.1-12.5)
[2024-06-15 00:53] LABS: Alanine Aminotransferase 79 U/L (12-78); Albumin Level 2.6 g/dl (3.5-5.0); Albumin/Globulin Ratio 0.9 (1.1-1.8); Alkaline Phosphatase 207 U/L (38-126); Anion Gap 7.6 mEq/L (5-15); Aspartate Amino Transferase 236 U/L (17-59); Bilirubin,Total 1.1 mg/dl (0.2-1.3); Blood Urea Nitrogen 14 mg/dl (9-20); Calcium 7.9 mg/dl (8.4-10.2); Carbon Dioxide 31 mmol/L (22.0-30.0); Chloride 98 mmol/L (98-107); Creatinine Clearance Estimated 153 mL/min (50-200); Estimated Glomerular Filt Rate 137 ml/min (>60); GFR (African American) 166 ML/MIN (>60); Globulin 2.9 g/dL (1.3-3.2); Glucose 116 mg/dl (74-100); Lipase 99 U/L (23-300); Magnesium 1.4 mg/dl (1.6-2.3); Phosphorous 3.5 mg/dl (2.5-4.5); Potassium 3.6 mmoL/L (3.5-5.1); Sodium 133 mmol/L (136-145); Total Protein,Serum 5.5 g/dl (6.3-8.2)
[2024-06-15 00:54] LABS: Anisocytosis 1+; Eosinophils % 2 % (0-3); Lymphocytes % 15 % (10-50); Macrocytosis 1+; Monocytes % 6 % (2-9); Neutrophils % 76 % (42-76); Platelet Estimate Slight Increase; Total Cells Counted 100
[2024-06-15] MEDS: SODIUM CHLORIDE 0.9% 10ML SYR (RAD ONLY) 10 ML IV (01:53)
[2024-06-15] MEDS: IOPAMIDOL-370 (76%);100ML BOTTLE 75 ML IV (01:54)
--- NOTE | 2024-06-15 02:40 | PC.NURSE ---
this RN at bedside with physician for paracentisis
[2024-06-15 03:04] LABS: Microscopic, Urine URINE MICROSCOPIC (MICROSCOPIC)
[2024-06-15 03:08] LABS: Blood, Urine Negative (Negative); Color,Urine AMBER (Yellow); Glucose,Urine (UA) Negative (Negative); Ketones,Urine 1+ (Negative); Leukocyte Esterase,Urine Negative (Negative); Nitrate,Urine POSITIVE (Negative); PH,Urine 5.5 (5.0-8.5); Protein,Urine TRACE (Negative)
[2024-06-15] MEDS: CEFTRIAXONE SODIUM 2 GM in 0.9 % SODIUM CHLORIDE 100 ML IV (03:31)
[2024-06-15 03:48] LABS: Bilirubin,Urine 2+ (Negative)
[2024-06-15 03:49] LABS: Appearance,Urine Slightly Cloudy (Clear)
[2024-06-15 03:58] LABS: Bacteria,Urine 1+ /lpf; Squamous Epithelial Cell,Urine Occasional #/hpf (0-5)
[2024-06-15 03:59] LABS: Mucus,Urine 1+ /lpf
[2024-06-15 04:33] LABS: Source, Body Fld. Peritoneal Fluid
[2024-06-15 04:34] LABS: Appearance,Body Fld. Cloudy
[2024-06-15 04:35] LABS: Volume,Body Fld. 13 mL
[2024-06-15 04:36] LABS: TNC,Body Fluid 62 cells/uL (< 1000)
[2024-06-15 04:37] LABS: RBC,Body Fluid < 10 cells/uL (< 10 X 10^3)
--- NOTE | 2024-06-15 04:57 | PC.NURSE ---
Dr[facility]rd [facility]
[2024-06-15 06:28] LABS: Mononuclear WBCs,Body Fluid 99 %; Polynuclear WBC,Body Fluid 1 %
[2024-06-17 12:24] LABS: Albumin, Body Fluid 0.5 g/dL (Not Estab.); LD, Body Fluid 58 IU/L (.); Protein, Body Fluid 0.9 g/dL (.)
== END 2024-06-15 05:39 | disposition home or self-care (01) ==
PROVIDERS: Emergency Provider Emergency Medicine; PCP Family Medicine
DX: K70.11 Alcoholic hepatitis with ascites (principal); R10.9 Unspecified abdominal pain
CPT/HCPCS: 74177; 80053; 81001; 82042; 83615; 83690; 83735; 84100; 84155; 85007; 85025; 85027; 85610; 87040; 89051; 96365; 96374; 99285; J0696; J2270; Q9967

== ENCOUNTER 2024-06-16 05:10 | Emergency (ER) | payer OTHER, SELFPAY ==
[2024-06-16 05:11] VITALS: BP 112/77; PULSE 125; RESP 20; TEMP 36.8; O2SAT 98; BMI 21.5
--- NOTE | 2024-06-16 05:23 | ED_ITS ---
Discharge Plan Disposition Patient Disposition: Home, Self-Care Prescriptions Prescriptions: No Action atomoxetine [Strattera] 40 mg capsule 40 mg PO DAILY Qty: 30 0RF benzonatate 200 mg capsule 200 mg PO TIDP PRN (Reason: Cough) sucralfate 100 mg/mL suspension 1,000 mg PO Q6H pantoprazole 20 mg tablet,delayed release (DR/EC) 20 mg PO DAILY calcium carbonate [Calcium Antacid] 200 mg calcium (500 mg) tablet,chewable 200 mg PO Q6HP PRN (Reason: Indigestion) nicotine 21 mg/24 hr patch 24 hour 21 mg transdermal DAILY lidocaine HCl [Lidocaine Viscous] 2 % solution 1 applic PO DAILY folic acid 1 mg tablet 1 mg PO DAILY potassium chloride [Klor-Con M10] 10 mEq tablet,ER particles/crystals 10 meq PO DAILY thiamine mononitrate (vit B1) [Vitamin B-1 (mononitrate)] 100 mg tablet 100 mg PO DAILY Referrals Follow up/Referrals: Provider,Referral, MD [Primary Care Provider] - See instructions Activity Restrictions/Add. Instructions Additional Instructions/Restrictions: Please follow-up with your primary care provider. Please return to the emergency department if you develop any new or worsening symptoms or become concerned for your health. Clinical Impressions Clinical Impression: Ascites due to alcoholic hepatitis Instructions Patient Instructions: DI for Acute Abdominal Pain Print Language Print Language: Comoran Discharge ED Provider: Dutch Byrd Adult HPI General Chief complaint: Abdominal Pain Stated complaint: abd pain, apendicitis Time Seen by Provider: 06/16/24 05:18 History of Present Illness HPI narrative: 24-year-old male with history of alcoholism, recently seen here transferred to for acute liver failure, discharged from on and seen here last night for new onset ascites. See previous note for full details. He returns tonight because he has been having worsening pain in the left abdomen. Denies fever or change in stools or urinary symptoms. Continues to deny any increase in alcohol intake. Related Data Home Medications ?Medication ?Instructions ?Recorded ?Confirmed benzonatate 200 mg capsule 200 mg PO TIDP PRN Cough 06/15/24 06/15/24 calcium carbonate (Calcium Antacid) 200 mg PO Q6HP PRN Indigestion 06/15/24 06/15/24 folic acid 1 mg tablet 1 mg PO DAILY 06/15/24 06/15/24 lidocaine HCl 2 % mucosal solution 1 applic PO DAILY 06/15/24 06/15/24 (Lidocaine Viscous) nicotine 21 mg/24 hr daily 21 mg transdermal DAILY 06/15/24 06/15/24 transdermal patch pantoprazole 20 mg tablet,delayed 20 mg PO DAILY 06/15/24 06/15/24 release potassium chloride 10 mEq 10 meq PO DAILY 06/15/24 06/15/24 tablet,extended release(part/cryst) (Klor-Con M) sucralfate 100 mg/mL oral 1,000 mg PO Q6H 06/15/24 06/15/24 suspension thiamine mononitrate (vit B1) 100 100 mg PO DAILY 06/15/24 06/15/24 mg tablet (Vitamin B-1 (mononitrate)) Previous Rx's ?Medication ?Instructions ?Recorded atomoxetine 40 mg capsule 40 mg PO DAILY #30 caps 12/30/20 (Strattera) Allergies Allergy/AdvReac Type Severity Reaction Status Date / Time No Known Allergies Allergy Verified 11/29/20 13:31 [facility] Disclaimer: The information contained in this section may have been updated after the patient was seen, as this information can be updated by other users. Social History (Updated 06/07/24 @ 17:34 by ZEHRA Beasley) Smoking Status: Current every day smoker alcohol intake: current alcohol intake frequency: a few times a week substance use type: denies use current occupational status: employed Travel in the last 8 weeks: None number of children: 0 Other Medical History Have you received the Pneumonia Vaccine: No ROS Obtained: Yes All systems reviewed & no additional complaints except as documented Physical Exam General General appearance: alert and in no apparent distress Head Head exam: atraumatic and normocephalic Eye Eye exam: Present normal appearance, PERRL and EOMI ENT ENT exam: Present normal oropharynx and normal external ear exam Neck Neck exam: Present normal inspection and full ROM Chest Chest inspection: Present normal inspection and symmetric chest wall rise; Absent tenderness Respiratory Respiratory exam: Present normal lung sounds bilaterally; Absent respiratory distress Cardiovascular Cardiovascular exam: Present regular rate and normal rhythm Abdominal Exam Abdominal exam: Present soft, distention and tenderness; Absent guarding Extremities Exam Extremities exam: Present normal inspection; Absent edema or joint swelling Back Exam Back exam: Present normal inspection; Absent tenderness Neurological Exam Neurological exam: Present alert and oriented X3; Absent motor sensory deficit Psychiatric Psychiatric exam: Present normal affect and normal mood Skin Skin exam: Present warm, dry and pallor Lymphatic Lymphatic Findings: no adenopathy Medical Decision Making Medical Records Medical records reviewed: Yes I reviewed the patient's medical records. Screening: Per USPSTF and CDC recommendations, given the prevalence of disease in our region, it is our hospital?s policy to screen for HIV and viral Hepatitis for all patients aged 18 and over and those with ongoing risk factors. Vidal Inquiry Pt receiving controlled substance: No Vidal was queried for this patient: No Vital Signs: 06/16/24 05:11 Temperature 98.2 F Temperature Source Oral Pulse Rate [Right] 125 H Respiratory Rate 20 Blood Pressure [Right Arm] 112/77 Blood Pressure Mean [Right Arm] 88 02 Sat by Pulse Oximetry 98 Oxygen Delivery Method Room Air Lab Data Lab results reviewed: Yes I reviewed the patient's lab results. Lab Results 06/16/24 05:43: WBC 22.2 H*, RBC 2.49 L, Hgb 8.7 L, Hct 27.2 L, MCV 109.0 H, MCH 34.8 H, MCHC 32.0, RDW 19.4 H, Plt Count 601 H, MPV 8.4, Neut % (Auto) 79.5, Lymph % (Auto) 15.0, Avery % (Auto) 4.1, Eos % (Auto) 0.8, Baso % (Auto) 0.7, N eut # (Auto) 17.6 H, Lymph # (Auto) 3.3, Avery # (Auto) 0.9, Eos # (Auto) 0.2, Baso # (Auto) 0.2, PT 12.4, INR 1.12 H, Sodium 134 L, Potassium 4.1, Chloride 97 L, Carbon Dioxide 29, Anion Gap 12.1, BUN 13, Creatinine 0.70, Estimated Creat Clear 151, Estimated GFR 137, Est GFR ( Amer) 166, Glucose 101 H, Calcium 7.7 L, Magnesium 1.4 L, Total Bilirubin 0.8, AST 200 H, ALT 72, Alkaline Phosphatase 208 H, Total Protein 5.7 L, Albumin 2.5 L, Globulin 3.2, A lbumin/Globulin Ratio 0.8 L, Lipase 111 06/16/24 05:43 06/16/24 05:43 Orders (Tests/Meds): ED MEDICATIONS Discontinued Medications Generic Name Dose Route Start Last Admin Trade Name Miley PRN Reason Stop Dose Admin Oxycodone HCl 5 mg 06/16/24 05:26 06/16/24 05:44 Oxycodone 5mg Immediate Release Tablet PO 06/16/24 05:27 5 mg ONCE ONE Administration ORDERS Category Date Time Status CBC w/Auto Diff [Complete Blood Count Auto Diff] Stat Lab 06/16/24 05:43 Results CMP [Comprehensive Metabolic Panel] Stat Lab 06/16/24 05:43 Completed INR [Prothrombin Time INR] Stat Lab 06/16/24 05:43 Completed Lipase Stat Lab 06/16/24 05:43 Completed Magnesium Stat Lab 06/16/24 05:43 Completed Medical Decision Narrative: 24-year-old male with new onset liver failure secondary to alcohol presents again with worsening abdominal pain. History was obtained via interactive discussion with patient, family, chart review. On arrival, patient is [afebrile, hemodynamically stable, satting appropriately, alert, oriented x4, GCS 15], moving all extremities spontaneously. Full physical exam performed and significant for abdominal distention and mild tenderness, lower extremity edema improved from yesterday. Differential includes but is not limited to worsening liver decompensation, SBP, colitis, gastroenteritis, Patient was given oxycodone for pain control. Workup initiated including CBC CMP INR lipase. Repeat paracentesis was considered, but given he had a negative paracentesis with the last 24 hours I do not think it is indicated at this point. On re-evaluation, patient [remains afebrile, HD stable.] Laboratory workup independently interpreted by me and significant for mild worsening of the white count, now 22, stable mild electrolyte derangements, bilirubin improved, lipase normal, LFTs are improved. CT was considered, but deemed unnecessary due to history and exam. Given patient history, exam and workup, patient's presentation most likely represents abdominal wall pain secondary to distention related to new ascites formation. I had extensive interactive discussion with patient and patient's family regarding his presentation, his labs, consideration of imaging and paracentesis etc. At this time it is felt that he is appropriate for discharge. Return precautions given.. Procedures Risk/Benefits of Procedure(s) Were Explained: Yes Critical Care Critical Care Time Critical Care Time: No
[2024-06-16] MEDS: OXYCODONE 5MG IMMEDIATE RELEASE TABLET 5 MG PO (05:44)
[2024-06-16 05:57] LABS: Basophils # 0.2 K/mm3 (0-0.2); Basophils % 0.7 % (0.1-2.0); Eosinophils # 0.2 K/mm3 (0.0-0.4); Eosinophils % 0.8 % (0.1-12.0); Hematocrit 27.2 % (42.0-52.0); Hemoglobin 8.7 g/dL (14.1-18.0); Lymphocytes # 3.3 K/mm3 (0.7-4.5); Mean Corpuscular Hemoglobin 34.8 pg (27.0-31.2); Mean Platelet Volume 8.4 fl (7.4-10.4); Monocytes # 0.9 K/mm3 (0.1-1.0); Monocytes % 4.1 % (1.7-9.3); Neutrophils # 17.6 K/mm3 (1.8-7.8); Neutrophils % 79.5 % (37.0-80.0); Platelet Count 601 K/mm3 (142-424); Red Blood Count 2.49 M/mm3 (4.60-6.20); Red Cell Distribution Width 19.4 % (11.5-17.5); White Blood Count 22.2 K/mm3 (4.8-10.8)
[2024-06-16 05:58] LABS: Albumin Level 2.5 g/dl (3.5-5.0); Chloride 97 mmol/L (98-107); Potassium 4.1 mmoL/L (3.5-5.1); Sodium 134 mmol/L (136-145)
[2024-06-16 05:59] LABS: MANUAL DIFFERENTIAL MANUAL DIFFERENTIAL (MANUAL DIFF)
[2024-06-16 06:01] LABS: Alanine Aminotransferase 72 U/L (12-78); Albumin/Globulin Ratio 0.8 (1.1-1.8); Alkaline Phosphatase 208 U/L (38-126); Anion Gap 12.1 mEq/L (5-15); Aspartate Amino Transferase 200 U/L (17-59); Bilirubin,Total 0.8 mg/dl (0.2-1.3); Blood Urea Nitrogen 13 mg/dl (9-20); Calcium 7.7 mg/dl (8.4-10.2); Carbon Dioxide 29 mmol/L (22.0-30.0); Creatinine Clearance Estimated 151 mL/min (50-200); Estimated Glomerular Filt Rate 137 ml/min (>60); GFR (African American) 166 ML/MIN (>60); Globulin 3.2 g/dL (1.3-3.2); Glucose 101 mg/dl (74-100); Total Protein,Serum 5.7 g/dl (6.3-8.2)
[2024-06-16 06:06] LABS: INR 1.12 (0.9-1.1); Prothrombin Time 12.4 seconds (10.1-12.5)
[2024-06-16 06:14] LABS: Lipase 111 U/L (23-300); Magnesium 1.4 mg/dl (1.6-2.3)
[2024-06-16 06:30] VITALS: BP 88/52; PULSE 102; RESP 16; TEMP 36.9; O2SAT 97
[2024-06-16 07:01] LABS: Lymphocytes % 15 % (10-50); Macrocytosis 1+; Monocytes % 4 % (2-9); Neutrophils % 81 % (42-76); Platelet Estimate Moderate Increase; Total Cells Counted 100
== END 2024-06-16 06:33 | disposition home or self-care (01) ==
PROVIDERS: Emergency Provider Emergency Medicine
DX: K70.11 Alcoholic hepatitis with ascites (principal); R10.9 Unspecified abdominal pain
CPT/HCPCS: 80053; 83690; 83735; 85007; 85025; 85027; 85610; 99283

== ENCOUNTER 2024-06-23 02:03 | Emergency (ER) | payer OTHER, SELFPAY ==
[2024-06-23 02:09] VITALS: BP 124/74; PULSE 103; RESP 20; TEMP 36.8; O2SAT 99; BMI 21.4
--- NOTE | 2024-06-23 02:25 | HMH.EDGENADL ---
Discharge Plan Disposition Patient Disposition: Home, Self-Care Condition: Good Prescriptions Prescriptions: No Action spironolactone 100 mg tablet 100 mg PO DAILY Qty: 30 2RF furosemide 20 mg tablet 20 mg PO DAILY Qty: 30 2RF Rx Instructions: Please take 1 p.o. daily ciprofloxacin HCl 500 mg tablet 500 mg PO DAILY Qty: 30 3RF Rx Instructions: Please take 1 tablet p.o. daily benzonatate 200 mg capsule 200 mg PO TIDP PRN (Reason: Cough) sucralfate 100 mg/mL suspension 1,000 mg PO Q6H pantoprazole 20 mg tablet,delayed release (DR/EC) 20 mg PO DAILY calcium carbonate [Calcium Antacid] 200 mg calcium (500 mg) tablet,chewable 200 mg PO Q6HP PRN (Reason: Indigestion) nicotine 21 mg/24 hr patch 24 hour 21 mg transdermal DAILY lidocaine HCl [Lidocaine Viscous] 2 % solution 1 applic PO DAILY folic acid 1 mg tablet 1 mg PO DAILY potassium chloride [Klor-Con M10] 10 mEq tablet,ER particles/crystals 10 meq PO DAILY thiamine mononitrate (vit B1) [Vitamin B-1 (mononitrate)] 100 mg tablet 100 mg PO DAILY Referrals Follow up/Referrals: Provider,Referral, MD [Primary Care Provider] - See instructions Activity Restrictions/Add. Instructions Additional Instructions/Restrictions: You were evaluated in the ER and are appropriate for discharge at this time. Continue all home medications as previously prescribed. Follow-up closely with Dr. Dee and your team at . Also follow-up closely with your primary care doctor. Return to the ER with any new, worsening, or otherwise concerning symptoms as discussed. Clinical Impressions Clinical Impression: Transaminitis, Anemia, Right sided abdominal pain Print Language Print Language: Amharic Discharge ED Provider: Gilma Ferguson General Adult HPI General Chief complaint: Fever Stated complaint: abd pain , fever, fluid in abd Time Seen by Provider: 06/23/24 02:09 Mode of Arrival: Ambulatory Source of Information: Patient Limitations: No Limitations Description of Symptoms (Recalled from ER Triage Doc. by RN): fever of 100.3 at home paracentesis done a week ago Ascitis worsened History of Present Illness HPI narrative: 24-year-old male with history of recent onset acute liver failure, ascites presents to the ER for right lower quadrant abdominal pain, temperature 100.5 ?F. 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 He has been evaluated by and has outpatient follow-up scheduled, however patient has been following here with Dr. Dee because of scheduling him in September. Patient reports this evening he started having right low/mid abdomen pain that is sharp, he also was febrile. He has had gradually increasing white count, Dr. Dee placed him on prophylactic ciprofloxacin per my review of recent records for SBP prophylaxis. Patient has not had a paracentesis since 06/15. Patient is not having any nausea, vomiting, diarrhea, dysuria, hematuria, chest pain, difficulty breathing, or other associated symptoms at this time Related Data Home Medications ?Medication ?Instructions ?Recorded ?Confirmed benzonatate 200 mg capsule 200 mg PO TIDP PRN Cough 06/15/24 06/16/24 calcium carbonate (Calcium Antacid) 200 mg PO Q6HP PRN Indigestion 06/15/24 06/16/24 folic acid 1 mg tablet 1 mg PO DAILY 06/15/24 06/16/24 lidocaine HCl 2 % mucosal solution 1 applic PO DAILY 06/15/24 06/16/24 (Lidocaine Viscous) nicotine 21 mg/24 hr daily 21 mg transdermal DAILY 06/15/24 06/16/24 transdermal patch pantoprazole 20 mg tablet,delayed 20 mg PO DAILY 06/15/24 06/16/24 release potassium chloride 10 mEq 10 meq PO DAILY 06/15/24 06/16/24 tablet,extended release(part/cryst) (Klor-Con M) sucralfate 100 mg/mL oral 1,000 mg PO Q6H 06/15/24 06/16/24 suspension thiamine mononitrate (vit B1) 100 100 mg PO DAILY 06/15/24 06/16/24 mg tablet (Vitamin B-1 (mononitrate)) Previous Rx's ?Medication ?Instructions ?Recorded ciprofloxacin HCl 500 mg tablet 500 mg PO DAILY #30 tabs 06/16/24 furosemide 20 mg tablet 20 mg PO DAILY #30 tabs 06/16/24 spironolactone 100 mg tablet 100 mg PO DAILY #30 tabs 06/16/24 Allergies Allergy/AdvReac Type Severity Reaction Status Date / Time No Known Allergies Allergy Verified 06/16/24 14:38 [facility] Disclaimer: The information contained in this section may have been updated after the patient was seen, as this information can be updated by other users. Medical History (Updated 06/23/24 @ 04:32 by Gilma Ferguson MD) Acute hepatic failure Social History (Updated 06/07/24 @ 17:34 by ZEHRA Beasley) Smoking Status: Never smoker alcohol intake: current alcohol intake frequency: a few times a week substance use type: denies use current occupational status: employed Travel in the last 8 weeks: None number of children: 0 Other Medical History Have you received the Pneumonia Vaccine: No ROS Obtained: Yes Systems reviewed as appropriate & no additional complaints except as documented Positive ROS per HPI Physical Exam General General appearance: alert and in no apparent distress Head Head exam: atraumatic and normocephalic Eye Eye exam: Present PERRL and EOMI ENT ENT exam: Present mucous membranes moist Neck Neck exam: Present normal inspection and full ROM Chest Chest inspection: Present symmetric chest wall rise Respiratory Respiratory exam: Present normal lung sounds bilaterally; Absent respiratory distress, wheezes or stridor Cardiovascular Cardiovascular exam: Present regular rate and normal rhythm Abdominal Exam Abdominal exam: Present soft and tenderness (Mild right lower quadrant, paracentesis site in this area appears clean, dry, well-healed, no findings of infection); Absent distention, guarding or rebound Comment: No fluid wave Extremities Exam Extremities exam: Present full ROM; Absent edema Neurological Exam Neurological exam: Present alert and oriented X3; Absent motor sensory deficit Psychiatric Psychiatric exam: Present normal affect and normal mood Skin Skin exam: Present warm and dry Medical Decision Making Medical Records Medical records reviewed: Yes I reviewed the patient's medical records. Screening: Per USPSTF and CDC recommendations, given the prevalence of disease in our region, it is our hospital?s policy to screen for HIV and viral Hepatitis for all patients aged 18 and over and those with ongoing risk factors. MR Comment: Dr. Dee evaluated the patient 06/16 and placed him on ciprofloxacin for SBP prophylaxis. Patient reports taking this as directed. Vidal Inquiry Pt receiving controlled substance: No Vital Signs: 06/23/24 02:09 06/23/24 02:30 06/23/24 03:00 Temperature 98.3 F Temperature Source Oral Pulse Rate 114 H 109 H Pulse Rate [Right Brachial] 103 H Respiratory Rate 20 Blood Pressure 114/74 114/74 Blood Pressure [Right Arm] 124/74 Blood Pressure Mean [Right Arm] 90 Blood Pressure Source [Right Arm] Automatic Cuff Blood Pressure Position [Right Arm] Sitting 02 Sat by Pulse Oximetry 99 95 97 Oxygen Delivery Method Room Air Room Air 06/23/24 03:30 06/23/24 04:00 Temperature Temperature Source Pulse Rate 107 H 108 H Pulse Rate [Right Brachial] Respiratory Rate Blood Pressure 120/78 Blood Pressure [Right Arm] Blood Pressure Mean [Right Arm] Blood Pressure Source [Right Arm] Blood Pressure Position [Right Arm] 02 Sat by Pulse Oximetry 98 95 Oxygen Delivery Method Room Air Room Air Lab Data Lab Results 06/23/24 02:40: WBC 17.4 H, RBC 2.64 L, Hgb 9.3 L, Hct 27.9 L, MCV 105.8 H, MCH 35.2 H, MCHC 33.3, RDW 18.7 H, Plt Count 454 H, MPV 7.8, Neut % (Auto) 74.6, Lymph % (Auto) 17.7, Loup % (Auto) 4.9, Eos % (Auto) 2.1, Baso % (Auto) 0.7, Neut # (Auto) 13.0 H, Lymph # (Auto) 3.1, Loup # (Auto) 0.9, Eos # (Auto) 0.4, Baso # (Auto) 0.1, Total Counted 100, Neutrophils % (Manual) 76, Lymphocytes % (Manual) 21, Monocytes % (Manual) 2, Eosinophils % (Manual) 1, RBC Morphology Normal, Anisocytosis 1+, PT 11.9, INR 1.07, Sodium 130 L, Potassium 3.7, Chloride 102, Carbon Dioxide 25, Anion Gap 6.7, BUN 5 L, Creatinine 0.60 L, Estimated Creat Clear 175, Estimated GFR 164, Est GFR ( Amer) 199, Glucose 102 H, Lactate 3.3 H, Calcium 8.1 L, Total Bilirubin 0.9, AST 176 H, ALT 62, Alkaline Phosphatase 235 H, Total Protein 5.5 L, Albumin 2.5 L, Globulin 3.0, Albumin/Globulin Ratio 0.8 L, Lipase 54 06/23/24 02:40 06/23/24 02:40 Orders (Tests/Meds): ED MEDICATIONS Generic Name Dose Route Start Last Admin Trade Name Freq PRN Reason Stop Dose Admin Sodium Chloride 10 ml 06/23/24 03:17 06/23/24 03:18 Sodium Chloride 0.9% 10ml Syr (Rad Only) IV 07/23/24 03:16 10 ml NEEDED PRN Administration Maintain IV Site Discontinued Medications Generic Name Dose Route Start Last Admin Trade Name Stevenq PRN Reason Stop Dose Admin Lactated Ringer's 1,000 mls @ 999 mls/hr 06/23/24 03:30 06/23/24 03:37 Lactated Ringer's 1000 Ml Bag IV 06/23/24 04:30 999 mls/hr .Q1H1M ONE Administration Iopamidol 75 ml 06/23/24 03:17 06/23/24 03:17 Iopamidol-370 (76%);100ml Bottle IV 06/23/24 03:18 75 ml ONCE ONE Administration Ketorolac Tromethamine 15 mg 06/23/24 04:26 06/23/24 04:28 Ketorolac 30mg/Ml Vial IV 06/23/24 04:27 15 mg ONCE ONE Administration ORDERS Category Date Time Status CT abdomen pelvis w con Stat Cat Scan 06/23/24 02:29 Completed POCUS Point of Care (ER Only) Stat Exams 06/23/24 02:14 Completed CBC w/Auto Diff [Complete Blood Count Auto Diff] Stat Lab 06/23/24 02:40 Completed CMP [Comprehensive Metabolic Panel] Stat Lab 06/23/24 02:40 Completed HIV (1&2) Antibody Rapid Stat Lab 06/23/24 02:13 Ordered Hep C Ab with Reflex to RNA Stat Lab 06/23/24 02:13 Ordered Lactic Acid Stat Lab 06/23/24 02:40 Completed Lipase Stat Lab 06/23/24 02:40 Completed PT INR [Prothrombin Time INR] Stat Lab 06/23/24 02:40 Completed Medical Decision Narrative: In summary, this 24-year-old male with known acute liver failure and ascites presents to the emergency department today with fever, right side abdominal pain. On initial evaluation patient is mildly tachycardic but otherwise hemodynamically stable, afebrile on arrival, mild tenderness to palpation of the right abdomen without rebound or guarding, no findings of peritonitis. Differential diagnosis includes but is not limited to ascites, worsening transaminitis, biliary pathology, appendicitis, mesenteric adenitis, viral syndrome, enteritis. Based on these concerns, I ordered serum labs, CT imaging. I performed [id number] ultrasound to evaluate for ascites, I do not appreciate a fluid pocket that would be appropriate for paracentesis. Records from [facility] were reviewed. Patient is consistently tachycardic in the low 100s while hospitalized and at outpatient visits, consistent with vitals today. His WBC today is improved, it was over 19.53 5 days ago at his last outpatient lab visit. LFTs are also showing slight improvement, AST today is 176 down from 184. Alkaline phosphatase today 235 down from 252. Labs personally reviewed were notable for leukocytosis which is improving, anemia also improving, CMP with transaminitis that is showing signs of improvement compared to outside facility labs, patient did have an elevated lactate so he received IV fluids, I believe this is likely secondary to poor oral intake, he indicated he has been fluid restricting due to the ascites. He has no findings of kidney dysfunction, lipase normal. CT abdomen pelvis personally interpreted demonstrates mild there is a pathology which appears stable from prior, I do not appreciate appendicitis, only small volume ascites. No other acute intra-abdominal pathology appreciated. See radiology read for final interpretation. On reassessment patient continues to be stable, he received IV Toradol, he is appropriate for discharge at this time. I spent time counseling and educating family and patient on continued symptomatic monitoring and management, close follow-up with all of his providers, as well as strict return precautions for the ER. They indicated understanding and the patient was discharged in stable condition. Procedures Miscellaneous Procedure Procedure Performed: Limited abdominal ultrasound Indication: abd pain, known history of ascites Identified structures: Right and left lower quadrant of abdomen Findings: Hepatomegaly, no fluid pocket in either lower quadrant that would be appropriate for paracentesis I personally performed and interpreted this ultrasound. The images were adequate and do not require further imaging at this time Critical Care Critical Care Time Critical Care Time: No
--- NOTE | 2024-06-23 02:29 | CT_ITS ---
PROCEDURE INFORMATION: Exam: CT Abdomen And Pelvis With Contrast Exam date and time: 06/23/2024 3:10 AM Age: 24 years old Clinical indication: Abdominal pain; Additional info: R abd pain w/ fever, new liver failure TECHNIQUE: Imaging protocol: Computed tomography of the abdomen and pelvis with contrast. Radiation optimization: All CT scans at this facility use at least one of these dose optimization techniques: automated exposure control; mA and/or kV adjustment per patient size (includes targeted exams where dose is matched to clinical indication); or iterative reconstruction. Contrast material: ISOVUE; Contrast volume: 75 ml; Contrast route: IV; COMPARISON: CT ABDOMEN PELVIS W CON 06/15/2024 1:55 AM FINDINGS: Pleural spaces: Moderate bilateral pleural effusions. Liver: Small amount of free fluid is seen adjacent to the lower right liver margin. Mild hepatomegaly. Gallbladder and biliary ducts: The gallbladder is contracted. Pericholecystic fluid is noted. Multiple calcified stones are present. Pancreas: Normal. No ductal dilation. Spleen: Normal. No splenomegaly. Adrenal glands: Normal. No mass. Kidneys and ureters: Normal. No hydronephrosis. Stomach and bowel: Unremarkable. No obstruction. No mucosal thickening. Appendix: No evidence of appendicitis. Intraperitoneal space: Small amount of free fluid is seen in the dependent pelvis. Vasculature: Unremarkable. No abdominal aortic aneurysm. Lymph nodes: Mildly enlarged portal lymph nodes are noted. enlarged lymph nodes. Urinary bladder: Unremarkable as visualized. Reproductive: Unremarkable as visualized. Bones/joints: Unremarkable. No acute fracture. Soft tissues: Unremarkable. IMPRESSION: 1. Mild hepatomegaly and small to moderate amount of ascites, not significantly changed from prior. 2. Contracted gallbladder containing stones with pericholecystic fluid, stable. 3. Portal and upper retroperitoneal lymphadenopathy. 4. Moderate bilateral pleural effusions increased from prior.
[2024-06-23 02:30] VITALS: BP 114/74; PULSE 114; O2SAT 95
[2024-06-23 02:49] LABS: Basophils # 0.1 K/mm3 (0-0.2); Basophils % 0.7 % (0.1-2.0); Eosinophils # 0.4 K/mm3 (0.0-0.4); Eosinophils % 2.1 % (0.1-12.0); Hematocrit 27.9 % (42.0-52.0); Hemoglobin 9.3 g/dL (14.1-18.0); Lymphocytes # 3.1 K/mm3 (0.7-4.5); Lymphocytes % 17.7 % (10-50); Mean Corpuscular HGB Conc 33.3 g/dL (31.8-35.4); Mean Corpuscular Hemoglobin 35.2 pg (27.0-31.2); Mean Corpuscular Volume 105.8 fl (80-94); Mean Platelet Volume 7.8 fl (7.4-10.4); Monocytes # 0.9 K/mm3 (0.1-1.0); Monocytes % 4.9 % (1.7-9.3); Neutrophils % 74.6 % (37.0-80.0); Platelet Count 454 K/mm3 (142-424); Red Blood Count 2.64 M/mm3 (4.60-6.20); Red Cell Distribution Width 18.7 % (11.5-17.5); White Blood Count 17.4 K/mm3 (4.8-10.8)
[2024-06-23 02:55] LABS: MANUAL DIFFERENTIAL MANUAL DIFFERENTIAL (MANUAL DIFF)
[2024-06-23 03:00] VITALS: BP 114/74; PULSE 109; O2SAT 97
[2024-06-23 03:00] LABS: Alanine Aminotransferase 62 U/L (12-78); Albumin Level 2.5 g/dl (3.5-5.0); Albumin/Globulin Ratio 0.8 (1.1-1.8); Alkaline Phosphatase 235 U/L (38-126); Anion Gap 6.7 mEq/L (5-15); Aspartate Amino Transferase 176 U/L (17-59); Bilirubin,Total 0.9 mg/dl (0.2-1.3); Blood Urea Nitrogen 5 mg/dl (9-20); Calcium 8.1 mg/dl (8.4-10.2); Carbon Dioxide 25 mmol/L (22.0-30.0); Chloride 102 mmol/L (98-107); Creatinine Clearance Estimated 175 mL/min (50-200); Estimated Glomerular Filt Rate 164 ml/min (>60); GFR (African American) 199 ML/MIN (>60); Glucose 102 mg/dl (74-100); INR 1.07 (0.9-1.1); Lipase 54 U/L (23-300); Potassium 3.7 mmoL/L (3.5-5.1); Prothrombin Time 11.9 seconds (10.1-12.5); Sodium 130 mmol/L (136-145); Total Protein,Serum 5.5 g/dl (6.3-8.2)
[2024-06-23 03:03] LABS: Lactic Acid 3.3 mmol/L (0.7-2.1)
[2024-06-23] MEDS: IOPAMIDOL-370 (76%);100ML BOTTLE 75 ML IV (03:17)
[2024-06-23] MEDS: SODIUM CHLORIDE 0.9% 10ML SYR (RAD ONLY) 10 ML IV (03:18)
[2024-06-23 03:30] VITALS: PULSE 107; O2SAT 98
[2024-06-23] MEDS: LACTATED RINGERS 1000ML 1,000 ML 999 ML IV (03:37)
[2024-06-23 03:55] LABS: Eosinophils % 1 % (0-3); Lymphocytes % 21 % (10-50); Monocytes % 2 % (2-9); Neutrophils % 76 % (42-76); Total Cells Counted 100
[2024-06-23 03:56] LABS: Anisocytosis 1+; RBC Morphology Normal
[2024-06-23 04:00] VITALS: BP 120/78; PULSE 108; O2SAT 95
[2024-06-23] MEDS: KETOROLAC 30MG/ML VIAL 15 MG IV (04:28)
[2024-06-23 04:42] VITALS: BP 120/68; PULSE 106; RESP 20; TEMP 36.8; O2SAT 98
[2024-06-23 06:00] LABS: HIV (1&2) Antibody Rapid NONREACTIVE (NONREACTIVE)
[2024-06-23 06:51] LABS: Reflex Lactic Add Lactic Reflex
[2024-06-24 09:39] LABS: HCV Ab Non Reactive (Non Reactive)
== END 2024-06-23 04:54 | disposition home or self-care (01) ==
PROVIDERS: Emergency Provider Emergency Medicine
DX: D64.9 Anemia, unspecified (principal); R74.01 Elevation of levels of liver transaminase levels; R10.31 Right lower quadrant pain; R50.9 Fever, unspecified
CPT/HCPCS: 74177; 80053; 83605; 83690; 85007; 85025; 85027; 85610; 86803; 87389; 96361; 96374; 99285; J1885; J7120; Q9967

== ENCOUNTER 2024-08-20 14:41 | Outpatient (CLI) | payer OTHER, SELFPAY ==
--- NOTE | 2024-08-20 14:44 | XR_ITS ---
FINAL REPORT CLINICAL HISTORY: Right shoulder pain COMPARISON: None FINDINGS: RIGHT SHOULDER 2 views demonstrate no acute fracture or dislocation. The visualized joint spaces are normally aligned. The soft tissues are unremarkable. IMPRESSION: No acute bony abnormality. Reviewed, Interpreted and Dictated by Jesus Barrios MD Transcribed by Sarah Moreira Authenticated and [facility]
--- NOTE | 2024-08-20 14:44 | XR_ITS ---
FINAL REPORT CLINICAL HISTORY: Right knee pain COMPARISON: None FINDINGS: RIGHT KNEE Three views demonstrate no acute fracture or dislocation. The joint spaces appear normal. No acute soft tissue abnormality is seen. IMPRESSION: No acute bony abnormality. Reviewed, Interpreted and Dictated by Jesus Barrios MD Transcribed by Sarah Moreira Authenticated and [facility]
== END 2024-08-20 23:59 | disposition home or self-care (01) ==
LOC: RAD 14:42
PROVIDERS: PCP Nurse Practitioner; Visit Provider Physician Assistant Surgical
DX: M25.511 Pain in right shoulder (principal); M25.561 Pain in right knee
CPT/HCPCS: 73030; 73562